=== PATIENT | male | born 1965 | race Caucasian/White ===

== ENCOUNTER 2021-10-16 22:20 | Emergency (ER) | payer MEDICARE, OTHER ==
[~2021-10-16 22:20] MED LIST: ATARAX25 MG PO; HUMULIN R100 UNIT/2 SC; MAG-OXIDE 400M400 MG PO; OXYCODONE-ACET1 EAC1 PO; PANTOPRAZOLE SO40 MG PO; PEPCID AC20 MG PO; POLY-IRON150 MG PO; PRILOSEC20 MG PO; REMERON15 MG PO; SENNA-TIME S T1 EACH PO; WELLBUTRIN XL150 M1 PO; XARELTO10 MG PO; ZOLOFT50 MG PO
[2021-10-16 22:38] LABS: BASOPHIL 0.9 % (0-2); EOSINOPHIL 0.6 % (0-5); HCT 50.5 % (42.0-52.0); HGB 17.7 g/dl (13.2-18.0); LYMPHOCYTE 25.2 % (15-48); MCV 79.9 fL (78.0-100.0); MONOCYTE 8.5 % (0-12); MPV 9.2 fL (6.0-9.5); NEUTROPHIL 64.3 % (41-80); NRBC 0; PLT 301 K/uL (150-400); RBC 6.32 M/uL (4.70-6.00); RDW 12.2 % (11.5-14.0)
[2021-10-16 22:50] LABS: INR 1.12 (0.9-1.2); PROTHROMBIN TIME 13.8 SECONDS (11.8-13.4)
[2021-10-16 23:01] LABS: ALBUMIN 4.2 g/dL (3.4-5.0); BUN/CREAT RATIO (CALC) 42.4 RATIO; CREATININE 0.92 mg/dL (0.67-1.17); GLOBULIN (CALCULATION) 4.7 g/dL; POTASSIUM 3.4 mmol/L (3.5-5.1); TOTAL PROTEIN 8.9 g/dL (6.4-8.2)
[2021-10-16 23:16] LABS: LACTIC ACID 2.9 mmol/L (0.4-1.9)
[2021-10-17 00:34] LABS: BILIRUBIN 1+ mg/dL (NEGATIVE); BLOOD NEGATIVE Ery/uL (NEGATIVE); CLARITY CLEAR (CLEAR); COLOR YELLOW (YELLOW); GLUCOSE (U) 1+ mg/dL (NORMAL); LEUKOCYTES NEGATIVE Leu/uL (NEGATIVE); NITRITE NEGATIVE (NEGATIVE); PROTEIN NEGATIVE (NEGATIVE); pH 5.5 (5.0-9.0)
[2021-10-17] MEDS ORDERED: ONDANSETRON ODT4 MG PO (00:35)
== END 2021-10-17 01:41 | disposition home or self-care (01) ==
LOC: FER 22:20
PROVIDERS: Emergency Medicine
DX: R10.9 Unspecified abdominal pain (principal); R11.2 Nausea with vomiting, unspecified; E11.9 Type 2 diabetes mellitus without complications
CPT/HCPCS: 36415; 80053; 81003; 82150; 83605; 83690; 84145; 84484; 85025; 85610; 87040; J7030